=== PATIENT | female | born 1980 | race Two or more races ===

== ENCOUNTER 2024-02-27 07:34 | Inpatient (IN) | payer MEDICAID, OTHER ==
[~2024-02-27] VITALS: Ht 157.5 cm; Wt 63.5 kg
[2024-02-27 08:14] LABS: Basophils # (auto) 0 10 ^3/uL (0-0.2); Basophils % (auto) 0.2 % (0.0-2.0); Eosinophils # (auto) 0.1 10 ^3/uL (0-0.8); Eosinophils % (auto) 0.4 % (0.0-7.0); Hematocrit 44.6 % (36.0-46.0); Hemoglobin 14.7 g/dL (12.2-16.2); Lymphocytes # (auto) 1.6 10 ^3/uL (0.4-5.4); Lymphocytes % (auto) 9.5 % (10.0-50.0); Mean Corpuscular Hgb Conc. 32.9 g/dL (32.0-36.0); Mean Corpuscular Volume 94.1 fL (80.0-100.0); Monocytes # (auto) 0.4 10 ^3/uL (0-1.3); Monocytes % (auto) 2.6 % (0.0-12.0); Neutrophils # (auto) 14.8 10 ^3/uL (1.6-8.6); Neutrophils % (auto) 87.3 % (37.0-80.0); Platelet Count (auto) 364 10^3/uL (140-450); Red Blood Cells 4.74 10^6/uL (4.0-5.20); Red Cell Distribution Width 15.5 % (11.8-14.3)
[2024-02-27 08:58] LABS: Chloride 103 mmol/L (98-107); Potassium 2.8 mmol/L (3.5-5.1); Sodium 137 mmol/L (136-145)
[2024-02-27 08:59] LABS: Anion Gap 22 (5-15); Calcium 9.8 mg/dL (8.7-10.4); Carbon Dioxide 12 mmol/L (20-30)
[2024-02-27 09:04] LABS: BUN/Creatinine Ratio 10.4 (10.0-20.0); Blood Urea Nitrogen 8 mg/dL (9-23); Glucose 67 mg/dL (74-106); Lipase 32 U/L (12-53)
[2024-02-27] MEDS: metroNIDAZOLE 500MG/100ML 100 ML IV ONE (10:00)
[2024-02-27] MEDS ORDERED: ACETAMINOPHEN 325 MG TAB PO PRN (14:15)
[2024-02-27] MEDS ORDERED: SODIUM CHLORIDE 0.9% 1,000 ML IV SCH (14:15)
[2024-02-27] MEDS ORDERED: POTASSIUM EFFERVESENT TAB 25 MEQ PO ONE (14:15)
[2024-02-27] MEDS ORDERED: SODIUM CHLORIDE 0.9% 1,000 ML IV ONE (14:15)
[2024-02-27] MEDS ORDERED: ONDANSETRON HCL 4 MG/2 ML VIAL IV PRN (14:15)
[2024-02-27] MEDS ORDERED: NITROGLYCERIN 0.4 MG SL TAB SL PRN (14:15)
[2024-02-27] MEDS ORDERED: MORPHINE SULFATE INJ 2 MG/ml SYRG IV PRN (14:15)
[2024-02-27] MEDS: SODIUM CHLORIDE 0.9% 1,000 ML IV ONE ×2 (15:15→16:30)
[2024-02-27] MEDS: ONDANSETRON HCL 4 MG/2 ML VIAL IV ONE (16:34)
[2024-02-27] MEDS: MORPHINE SULFATE 4 MG/ML SYR/VIAL IV ONE (16:39)
[2024-02-27] MEDS: cefTRIAXone 1GM/50ML D5W 50 ML IV ONE (16:40)
[2024-02-27] MEDS: POTASSIUM EFFERVESENT TAB 25 MEQ PO ONE (16:44)
[2024-02-27 16:45] VITALS: PULSE 93; RESP 16; O2SAT 99
[2024-02-27 17:54] VITALS: BP 135/84; PULSE 77; RESP 16; TEMP 98.3; O2SAT 100
[2024-02-27 17:56] VITALS: PULSE 78; RESP 16; O2SAT 100
[2024-02-27] MEDS: SODIUM CHLORIDE 0.9% 1,000 ML IV SCH (18:30)
[2024-02-27] MEDS ORDERED: LUMA42CA PO (18:43)
[2024-02-27] MEDS ORDERED: DULO1CAP6 PO (18:43)
[2024-02-27] MEDS ORDERED: FAMO40TA7 PO (18:43)
[2024-02-27] MEDS ORDERED: TRAZ-227 PO (18:43)
[2024-02-27] MEDS ORDERED: GABA800T97 PO (18:43)
[2024-02-27] MEDS ORDERED: PANC3600 PO (18:43)
[2024-02-27] MEDS ORDERED: HYDR-4609 (18:43)
[2024-02-27 20:00] VITALS: PULSE 90; PULSE 96; RESP 19; O2SAT 100
[2024-02-27] MEDS: ONDANSETRON HCL 4 MG/2 ML VIAL IV PRN (20:15)
[2024-02-27] MEDS: KETOROLAC TROMETH 30 MG/ML 1ML VIAL IV PRN (20:15)
[2024-02-27 21:00] VITALS: BP 112/68; PULSE 96; RESP 19; TEMP 98.2; O2SAT 100
[2024-02-27] MEDS: metroNIDAZOLE 500MG/100ML 100 ML IV SCH (21:13)
[2024-02-27] MEDS ORDERED: metroNIDAZOLE 500MG/100ML 100 ML IV SCH (22:00)
[2024-02-27] MEDS: ACETAMINOPHEN 325 MG TAB PO PRN (22:51)
[2024-02-28] VITALS (9 sets, daily range): BP systolic 94–131; BP diastolic 67–79; PULSE 66–86; RESP 15–19; TEMP 97.9–98.4; O2SAT 99–100
[2024-02-28 06:43] LABS: Basophils # (auto) 0 10 ^3/uL (0-0.2); Basophils % (auto) 0.5 % (0.0-2.0); Eosinophils # (auto) 0.1 10 ^3/uL (0-0.8); Eosinophils % (auto) 1.4 % (0.0-7.0); Hematocrit 36.4 % (36.0-46.0); Hemoglobin 12.5 g/dL (12.2-16.2); Lymphocytes # (auto) 1.6 10 ^3/uL (0.4-5.4); Lymphocytes % (auto) 20.7 % (10.0-50.0); Mean Corpuscular Hemoglobin 31.6 pg (28.0-32.0); Mean Corpuscular Hgb Conc. 34.3 g/dL (32.0-36.0); Mean Corpuscular Volume 92.2 fL (80.0-100.0); Monocytes # (auto) 0.4 10 ^3/uL (0-1.3); Monocytes % (auto) 5.5 % (0.0-12.0); Neutrophils # (auto) 5.6 10 ^3/uL (1.6-8.6); Neutrophils % (auto) 71.9 % (37.0-80.0); Nucleated Red Blood Cells % 0.1 %; Platelet Count (auto) 303 10^3/uL (140-450); Red Blood Cells 3.95 10^6/uL (4.0-5.20); Red Cell Distribution Width 15.2 % (11.8-14.3); White Blood Cell 7.8 10^3/uL (4.4-10.8)
[2024-02-28 07:04] LABS: Alanine Aminotransferase 54 U/L (7-40); Alkaline Phosphatase 83 U/L (46-116); Anion Gap 15 (5-15); Aspartate Aminotransferase 39 U/L (13-40); BUN/Creatinine Ratio 9.9 (10.0-20.0); Blood Urea Nitrogen 7 mg/dL (9-23); Calcium 9.2 mg/dL (8.7-10.4); Carbon Dioxide 17 mmol/L (20-30); Chloride 109 mmol/L (98-107); Glucose 56 mg/dL (74-106); Potassium 4.5 mmol/L (3.5-5.1); Sodium 141 mmol/L (136-145)
[2024-02-28 07:05] LABS: Bilirubin, Total 0.4 mg/dL (0.2-1.0); Total Protein 6.1 g/dL (5.7-8.2)
[2024-02-28 07:32] LABS: Urine Bacteria FEW /hpf (None Seen); Urine Blood TRACE /uL (Negative); Urine Color Light-Yellow (Yellow); Urine Mucus FEW (None Seen); Urine Protein, UAD TRACE (Negative); Urine Specific Gravity 1.018 (1.001-1.035); Urine Urobilinogen Normal (Negative); Urine WBC 2 /hpf (0 - 5); Urine pH 5.5 (5.0-9.0)
[2024-02-28 07:33] LABS: Urine Clarity Hazy (Clear)
[2024-02-28] MEDS: cefTRIAXone 1GM/50ML D5W 50 ML IV SCH (08:26)
[2024-02-28] MEDS ORDERED: cefTRIAXone 1GM/50ML D5W 50 ML IV SCH (09:00)
[2024-02-28] MEDS ORDERED: ENOXAPARIN SOD 40 MG/0.4 ML SYRINGE SC SCH (10:00)
[2024-02-28] MEDS: FAMOTIDINE 20 MG TAB PO ONE (10:59)
[2024-02-28] MEDS: GABAPENTIN 400 MG CAP PO ONE (11:00)
[2024-02-28] MEDS: DULoxetine HCL 30 MG CAP PO ONE (11:00)
[2024-02-28] MEDS: HYDROcodone-ACET 7.5/325MG TAB PO ONE (11:01)
[2024-02-28] MEDS: traZODone HCL 50 MG TAB PO ONE (11:02)
[2024-02-28] MEDS: DEXTROSE 10% 1,000 ML IV ONE (12:46)
[2024-02-28] MEDS: GABAPENTIN 400 MG CAP PO SCH (14:22)
[2024-02-28] MEDS: NICOTINE 14 MG/24HR TOPICAL PATCH TD ONE (18:00)
[2024-02-28] MEDS: HYDROcodone-ACET 7.5/325MG TAB PO PRN (19:32)
[2024-02-29] VITALS (8 sets, daily range): BP systolic 93–119; BP diastolic 54–97; PULSE 62–84; RESP 16–18; TEMP 97.8–98.3; O2SAT 96–100
[2024-02-29 07:15] LABS: Anion Gap 11 (5-15); Carbon Dioxide 20 mmol/L (20-30); Chloride 109 mmol/L (98-107); Potassium 3.7 mmol/L (3.5-5.1); Sodium 140 mmol/L (136-145)
[2024-02-29 07:16] LABS: Calcium 9.2 mg/dL (8.7-10.4)
[2024-02-29 07:21] LABS: BUN/Creatinine Ratio 8.2 (10.0-20.0); Blood Urea Nitrogen < 5 mg/dL (9-23); Glucose 89 mg/dL (74-106)
[2024-02-29 07:35] LABS: Basophils # (auto) 0.1 10 ^3/uL (0-0.2); Basophils % (auto) 0.9 % (0.0-2.0); Eosinophils # (auto) 0.2 10 ^3/uL (0-0.8); Eosinophils % (auto) 2.4 % (0.0-7.0); Hematocrit 37.5 % (36.0-46.0); Hemoglobin 12.8 g/dL (12.2-16.2); Lymphocytes # (auto) 1.7 10 ^3/uL (0.4-5.4); Lymphocytes % (auto) 23.8 % (10.0-50.0); Mean Corpuscular Volume 91.1 fL (80.0-100.0); Monocytes # (auto) 0.5 10 ^3/uL (0-1.3); Monocytes % (auto) 7.2 % (0.0-12.0); Neutrophils # (auto) 4.7 10 ^3/uL (1.6-8.6); Neutrophils % (auto) 65.7 % (37.0-80.0); Nucleated Red Blood Cells % 0.8 %; Platelet Count (auto) 338 10^3/uL (140-450); Red Blood Cells 4.12 10^6/uL (4.0-5.20); Red Cell Distribution Width 15.4 % (11.8-14.3); White Blood Cell 7.1 10^3/uL (4.4-10.8)
[2024-02-29 08:54] LABS: Hepatitis B Surface Antigen Negative (Negative)
[2024-02-29 09:15] LABS: Hepatitis C Antibody Negative (Negative)
[2024-02-29] MEDS: NICOTINE 14 MG/24HR TOPICAL PATCH TD SCH (09:35)
[2024-02-29] MEDS: DULoxetine HCL 30 MG CAP PO SCH (09:36)
[2024-02-29] MEDS: FAMOTIDINE 20 MG TAB PO SCH (09:36)
[2024-02-29] MEDS: traZODone HCL 50 MG TAB PO SCH (09:36)
[2024-02-29 10:39] LABS: Free T4 (Free Thyroxine) 1.2 ng/dL (0.89-1.76)
[2024-02-29 10:40] LABS: Free T3 2.56 pg/mL (2.3-4.2)
[2024-02-29] MEDS: POLYETHYLENE GLYCOL 17 GM PWDR PO ONE (18:59)
[2024-03-01 00:40] VITALS: BP 98/70; PULSE 60; RESP 18; TEMP 98.4; O2SAT 97
[2024-03-01 05:00] VITALS: BP 117/68; PULSE 93; RESP 18; TEMP 98.4; O2SAT 98
[2024-03-01 06:18] LABS: Basophils # (auto) 0 10 ^3/uL (0-0.2); Basophils % (auto) 0.7 % (0.0-2.0); Eosinophils # (auto) 0.2 10 ^3/uL (0-0.8); Eosinophils % (auto) 3.4 % (0.0-7.0); Hematocrit 36.9 % (36.0-46.0); Hemoglobin 12.7 g/dL (12.2-16.2); Lymphocytes # (auto) 1.5 10 ^3/uL (0.4-5.4); Lymphocytes % (auto) 26.5 % (10.0-50.0); Mean Corpuscular Hemoglobin 31.3 pg (28.0-32.0); Mean Corpuscular Hgb Conc. 34.3 g/dL (32.0-36.0); Mean Corpuscular Volume 91.1 fL (80.0-100.0); Monocytes # (auto) 0.4 10 ^3/uL (0-1.3); Monocytes % (auto) 7.2 % (0.0-12.0); Neutrophils # (auto) 3.5 10 ^3/uL (1.6-8.6); Neutrophils % (auto) 62.2 % (37.0-80.0); Nucleated Red Blood Cells % 0.1 %; Platelet Count (auto) 292 10^3/uL (140-450); Red Blood Cells 4.05 10^6/uL (4.0-5.20); Red Cell Distribution Width 15.4 % (11.8-14.3); White Blood Cell 5.6 10^3/uL (4.4-10.8)
[2024-03-01 06:26] LABS: Chloride 111 mmol/L (98-107); Potassium 3.8 mmol/L (3.5-5.1); Sodium 145 mmol/L (136-145)
[2024-03-01 06:27] LABS: Anion Gap 8 (5-15); Calcium 9.4 mg/dL (8.7-10.4); Carbon Dioxide 26 mmol/L (20-30)
[2024-03-01 06:32] LABS: Glucose 89 mg/dL (74-106)
[2024-03-01 06:35] LABS: BUN/Creatinine Ratio 7.8 (10.0-20.0); Blood Urea Nitrogen < 5 mg/dL (9-23)
[2024-03-01 08:00] VITALS: PULSE 76
[2024-03-01 09:00] VITALS: BP 127/67; PULSE 77; RESP 18; TEMP 98.2; O2SAT 99
[2024-03-01 11:08] LABS: Anti-Centromere B Antibody <0.2 AI (0.0-0.9); Anti-Jo-1 Antibody <0.2 AI (0.0-0.9); Anti-Nuclear Antibody Direct Negative (Negative); Anti-dsDNA Antibody <1 IU/mL (0-9); Antichromatin Antibody <0.2 AI (0.0-0.9); Antiscleroderma-70 Antibody <0.2 AI (0.0-0.9); RNP Antibody <0.2 AI (0.0-0.9); Sjogren's Anti-SS-A Antibody <0.2 AI (0.0-0.9); Sjogren's Anti-SS-B Antibody <0.2 AI (0.0-0.9); Smith Antibody <0.2 AI (0.0-0.9)
[2024-03-01 13:00] VITALS: BP 99/65; PULSE 69; RESP 18; TEMP 98.1; O2SAT 97
[2024-03-01] MEDS: LACTULOSE 20Gm/30ML SOLN PO ONE (13:56)
[2024-03-01 17:18] VITALS: TEMP 36.7
== END 2024-03-01 18:23 | disposition home or self-care (01) | DRG 249 ==
LOC: ER 07:34 → EDBD 07:34 → EDUNIT# 07:34 → TELE 14:15 → TELE-CENTR 18:08
PROVIDERS: ADMIT Internal Medicine; ATTEND Emergency Medicine
DX: A08.4 Viral intestinal infection, unspecified (principal); R65.10 Systemic inflammatory response syndrome (SIRS) of non-infectious origin without acute organ dysfunction; R56.9 Unspecified convulsions; E16.2 Hypoglycemia, unspecified; E87.6 Hypokalemia; G89.4 Chronic pain syndrome; F12.90 Cannabis use, unspecified, uncomplicated; F31.81 Bipolar II disorder; N20.0 Calculus of kidney; M54.9 Dorsalgia, unspecified; F17.200 Nicotine dependence, unspecified, uncomplicated; K86.1 Other chronic pancreatitis; Z90.49 Acquired absence of other specified parts of digestive tract; Z71.6 Tobacco abuse counseling
CPT/HCPCS: 36415; 74176; 80048; 80053; 81001; 83516; 83605; 83690; 83735; 84439; 84443; 84481; 85025; 86038; 86200; 86225; 86235; 86803; 87040; 87081; 87340; 99291; G0378; J1885; J2405; J3490

== ENCOUNTER 2024-08-03 07:59 | Inpatient (IN) | payer MEDICAID ==
[~2024-08-03] VITALS: Ht 154.9 cm; Wt 54.0 kg
[~2024-08-03 07:59] MED LIST: DULO1CAP6 PO; FAMO40TA7 PO; GABA800T97 PO; HYDR-4609; LUMA42CA PO; PANC3600 PO; TRAZ-227 PO
[2024-08-03 08:40] VITALS: PULSE 108; RESP 19; O2SAT 99
--- NOTE | 2024-08-03 08:51 | ED.PDOC ---
GI ASSESSMENT HPI Comments 43 year old female presents to the ED with chief complaint of abdominal pain and nausea/vomiting. Patient reports that she has been experiencing nausea, vomiting, and epigastric abdominal pain for the past 4 days, not being able to eat any food during this time. Patient relays that she has chronic pancreatitis and her last flare up was around 02/2024. Patient denies any diarrhea, fever, chills, dizziness, headache, or hematemesis. Chief Complaint: Nausea/Vomiting Time Seen by MD: 08:49 Primary Care Provider: ESMER Reviewed Notes: Nurses Notes, Medications, Allergies Allergies: Coded Allergies: NO KNOWN ALLERGIES (Unverified , 02/27/24) Home Meds Reported Medications Hydrocodone-Acetaminophen (Hydrocodone Bitartrate/AC 7.5-300 mg) 1 Tab Tab 02/27/24 Duloxetine HCl (Duloxetine HCl) 60 Mg Cap, 1 CAP PO DAILY 02/27/24 Famotidine (Famotidine) 40 Mg Tab, 1 TAB PO DAILY 02/27/24 Lumateperone Tosylate (Caplyta) 42 Mg Cap, 1 CAP PO DAILY 02/27/24 Gabapentin (Gabapentin) 800 Mg Tab, 1 TAB PO TID 02/27/24 Trazodone Hcl (Trazodone Hcl) 50 Mg Tab, TAB PO 02/27/24 Pancrelipase (Lipase-Protease- (CREON) 36,000 Unt Cap, PO 02/27/24 Information Source: Patient Mode of Arrival: Ambulatory Timing: Days Duration: Since onset Prehospital treatment: None Quality: Aching Vomitus: Watery Stool: Normal Severity: Moderate Recent: None Recent Hx of: None Pain Location: Epigastric Modifying Factors: Nothing Associated sign and symptoms: Nausea, Vomiting, Abdominal Pain Past Medical History Past Medical History (Other): Chronic pancreatitis Surgical History: Cholecystectomy [employer] History: No Pertinent [employer] History Family History Family History: Reviewed,noncontributory to illness, Unknown Social History Smoker: Non-Smoker Alcohol: Sober Drugs: Denies Drug Use Lives In: Home Constitutional: denies: chills, diaphoresis, fatigue, fever, malaise, sweats, weakness, others EENTM: denies: blurred vision, double vision, ear bleeding, ear discharge, ear drainage, ear pain, ear ringing, eye pain, eye redness, hearing loss, mouth pain, mouth swelling, nasal discharge, nose bleeding, nose congestion, nose pain, photophobia, tearing, throat pain, throat swelling, voice changes, others Respiratory: denies: cough, hemoptysis, orthopnea, SOB at rest, shortness of breath, SOB with excertion, stridor, wheezing, others Cardiovascular: denies: chest pain, dizzy spells, diaphoresis, Dyspnea on exertion, edema, irregular heart beat, left arm pain, lightheadedness, palpitations, PND, syncope, others Gastrointestinal: reports: abdominal pain, nausea, vomiting; denies: abdomen distended, blood streaked bowels, constipated, diarrhea, dysphagia, difficulty swallowing, hematemesis, melena, poor appetite, poor fluid intake, rectal bleeding, rectal pain, others Genitourinary: denies: abnormal vagina bleeding, burning, dyspareunia, dysuria, flank pain, frequency, hematuria, incontinence, pain, , vagina discharge, urgency, others Neurological: denies: dizziness, fainting, headache, left sided numbness, left sided weakness, numbness, paresthesia, pre-existing deficit, right sided numbness, right sided weakness, seizure, speech problems, tingling, tremors, weakness, others Musculoskeletal: denies: back pain, gout, joint pain, joint swelling, muscle pain, muscle stiffness, neck pain, others Integumetry: denies: bruises, change in color, change in hair/nails, dryness, laceration, lesions, lumps, rash, wounds, others Allergic/Immunocompromised: denies: Difficulty Healing, Frequent Infections, Hives, Itching, others Hematologic/Lymphatic: denies: anemia, blood clots, easy bleeding, easy bruising, swollen glands, others Endocrine: denies: excessive hunger, excessive sweating, excessive thirst, excessive urination, flushing, intolerance to cold, intolerance to heat, unexplained weight gain, unexplained weight loss, others Psychiatric: denies: anxiety, bipolar disorder, depression, hopeless, panic disorder, schizophrenia, sleepless, suicidal, others All Other Systems: Reviewed and Negative Physical Exam General Appearance: Moderate Distress, Normal HEENT: Normal ENT Inspection, PERRL/EOMI Neck: Full Range of Motion, Non-Tender, Normal, Normal Inspection Respiratory: Chest Non-Tender, Lungs Clear, No Accessory Muscle Use, No Respiratory Distress, Normal Breath Sounds Cardiovascular: No Edema, No JVD, No Murmur, No Gallop, Normal Peripheral Pulses, Regular Rate/Rhythm Breast Exam: Deferred Gastrointestinal: No Organomegaly, No Pulsatile Mass, Normal Bowel Sounds, Soft Genitalia: Deferred Pelvic: Deferred Rectal: Deferred Extremities: No calf tenderness, Normal capillary refill, Normal inspection, Normal range of motion, Non-tender, No pedal edema Musculoskeletal : Apperance: Normal Neurologic: Alert, program director II-XII nml as Tested, No Motor Deficits, Normal Affect, Normal Mood, No Sensory Deficits Cerebellar Function: Normal Reflexes: Normal Skin: Dry, Normal Color, Warm Peripheral Pulses: 3+ Radial (R), 3+ Radial (L) Lymphatic: No Adenopathy Was a procedure done? Was a procedure done?: No GI differential Dx Differential Diagnosis: Constipation, Diverticular disease, Esophagitis, Gas tritis/PUD, Gastroenteritis X-Ray, Labs, Meds, VS Vital Signs Date Time Temp Pulse Resp B/P (MAP) Pulse Ox O2 Delivery O2 Flow Rate FiO2 08/03/24 08:40 97.8 108 19 126/69 (88) 99 97.8 08/03/24 08:40 108 19 99 Room Air* 0 21 08/03/24 08:10 98.0 124 16 128/50 (76) 98 Lab Test 08/03/24 09:45 Range/Units White Blood Count 11.8 H 4.4-10.8 10^3/uL Red Blood Count 5.12 4.0-5.20 10^6/uL Hemoglobin 15.1 12.2-16.2 g/dL Hematocrit 46.4 H 36.0-46.0 % Mean Corpuscular Volume 90.6 80.0-100.0 fL Mean Corpuscular Hemoglobin 29.5 28.0-32.0 pg Mean Corpuscular Hemoglobin Concent 32.5 32.0-36.0 g/dL Red Cell Distribution Width 17.0 H 11.8-14.3 % Platelet Count 316 140-450 10^3/uL Mean Platelet Volume 7.5 6.9-10.8 fL Neutrophils (%) (Auto) 82.2 H 37.0-80.0 % Lymphocytes (%) (Auto) 11.9 10.0-50.0 % Monocytes (%) (Auto) 5.1 0.0-12.0 % Eosinophils (%) (Auto) 0.3 0.0-7.0 % Basophils (%) (Auto) 0.5 0.0-2.0 % Neutrophils # (Auto) 9.7 H 1.6-8.6 10 ^3/uL Lymphocytes # (Auto) 1.4 0.4-5.4 10 ^3/uL Monocytes # (Auto) 0.6 0-1.3 10 ^3/uL Eosinophils # (Auto) 0 0-0.8 10 ^3/uL Basophils # (Auto) 0.1 0-0.2 10 ^3/uL Nucleated Red Blood Cells 0.0 % Platelet Estimate Pending Sodium Level Pending Potassium Level Pending Chloride Level Pending Carbon Dioxide Level Pending Anion Gap Pending Blood Urea Nitrogen Pending Creatinine Pending Glomerular Filtration Rate Calc Pending BUN/Creatinine Ratio Pending Serum Glucose Pending Calcium Level Pending Lipase Pending Patient alert. Complaining of abdominal pain. History of pancreatitis. Vitals stable. Answering all questions. Continues to be in pain. WBC elevated. Establish intravenous access. Was given fluids. Was given morphine. Was given Flagyl. Explained to the patient. Continue monitoring. Time of 1ST Reevaluation: 09:49 Reevaluation 1ST: Unchanged Patient Education/Counseling: Diagnosis, Treatment Family Education/Counseling: No Family Present Departure 1 Departure Time of Disposition: 10:53 Impression: Primary Impression: Acute abdominal pain Additional Impression: Leukocytosis Qualified Codes: D72.829 - Elevated white blood cell count, unspecified Disposition: 09 ADMITTED INPATIENT Admit to: Med Surg Condition: Guarded Critical Care Note Critical Care Time?: No Stability Stability form required: No Heart Score Heart Score: Heart Score Response (Comments) Value History N/A 0 EKG N/A 0 Age N/A 0 Risk Factors N/A 0 Troponin N/A 0 Total 0 I personally scribed for GENEVA CAMPO MD ([email or web address]) on 08/03/24 at 08:51. Electronically submitted by Kelechi Chairez ([email or web address]). GENEVA CAMPO MD Aug 03, 2024 08:51
[2024-08-03 10:16] LABS: Chloride 100 mmol/L (98-107); Sodium 136 mmol/L (136-145)
[2024-08-03 10:17] LABS: Anion Gap 16 (5-15); Carbon Dioxide 20 mmol/L (20-31)
[2024-08-03 10:19] LABS: Basophils # (auto) 0.1 10 ^3/uL (0-0.2); Basophils % (auto) 0.5 % (0.0-2.0); Eosinophils # (auto) 0 10 ^3/uL (0-0.8); Eosinophils % (auto) 0.3 % (0.0-7.0); Hematocrit 46.4 % (36.0-46.0); Hemoglobin 15.1 g/dL (12.2-16.2); Lymphocytes # (auto) 1.4 10 ^3/uL (0.4-5.4); Lymphocytes % (auto) 11.9 % (10.0-50.0); Mean Corpuscular Hemoglobin 29.5 pg (28.0-32.0); Mean Corpuscular Hgb Conc. 32.5 g/dL (32.0-36.0); Mean Corpuscular Volume 90.6 fL (80.0-100.0); Monocytes # (auto) 0.6 10 ^3/uL (0-1.3); Monocytes % (auto) 5.1 % (0.0-12.0); Neutrophils # (auto) 9.7 10 ^3/uL (1.6-8.6); Neutrophils % (auto) 82.2 % (37.0-80.0); Platelet Count (auto) 316 10^3/uL (140-450); Red Blood Cells 5.12 10^6/uL (4.0-5.20); White Blood Cell 11.8 10^3/uL (4.4-10.8)
[2024-08-03 10:22] LABS: Glucose 75 mg/dL (74-106)
[2024-08-03 10:23] LABS: BUN/Creatinine Ratio 9.2 (10.0-20.0); Lipase 35 U/L (12-53)
[2024-08-03 11:14] LABS: Blood Urea Nitrogen 6 mg/dL (9-23); Calcium 10.5 mg/dL (8.7-10.4); Potassium 3.2 mmol/L (3.5-5.1)
[2024-08-03] MEDS: metroNIDAZOLE 500MG/100ML 100 ML IV ONE (11:48)
[2024-08-03] MEDS: cefTRIAXone 1GM/50ML D5W 50 ML IV ONE (11:48)
[2024-08-03] MEDS: MORPHINE SULFATE INJ 2 MG/ml SYRG IV ONE (11:49)
[2024-08-03] MEDS: ONDANSETRON HCL 4 MG/2 ML VIAL IV ONE (11:49)
[2024-08-03] MEDS: SODIUM CHLORIDE 0.9% 1,000 ML IV ONE ×2 (11:50→17:24)
[2024-08-03] MEDS: POTASSIUM CHL 20 Meq TABLET PO ONE (11:51)
[2024-08-03 12:04] LABS: Platelet Estimate Adequate
[2024-08-03 12:13] LABS: Magnesium 1.9 mg/dL (1.6-2.6)
--- NOTE | 2024-08-03 13:15 | DVH ---
INDICATION: abdominal pain TECHNIQUE: Multiple real-time sonographic images of the abdomen were obtained. COMPARISON: None FINDINGS: Liver is homogenous in echogenicity. The liver measures 14.9 cm. No intrahepatic biliary ductal dilatation is noted. Post cholecystectomy. The common duct measures 1.0 cm and is unremarkable. The right kidney measures 9.5 cm. No hydronephrosis. The left kidney measures 9.3 cm. No hydronephros is. The spleen measures 8.4 cm, within normal limits. The echogenicity is within normal limits. The pancreas is not well visualized due to obscuration from bowel gas. The visualized portions of the IVC and aorta are grossly unremarkable. IMPRESSION: No acute findings.
[2024-08-03] MEDS ORDERED: DOCUSATE SOD 100 MG CAP PO PRN (14:00)
[2024-08-03] MEDS ORDERED: ACETAMINOPHEN 325 MG TAB PO PRN (14:00)
[2024-08-03 14:13] LABS: Urine Bacteria FEW /hpf (None Seen); Urine Blood Negative /uL (Negative); Urine Clarity Clear (Clear); Urine Color Light-Yellow (Yellow); Urine Mucus FEW (None Seen); Urine Protein, UAD Negative (Negative); Urine Specific Gravity 1.006 (1.001-1.035); Urine Squamous Epithelial Cell FEW /hpf (<5); Urine Urobilinogen Normal (Negative); Urine WBC < 1 /HPF (0-5); Urine pH 5.5 (5.0-9.0)
[2024-08-03] MEDS ORDERED: traZODone HCL 50 MG TAB PO PRN (14:15)
--- NOTE | 2024-08-03 14:18 | DVHHP2 ---
History of Present Illness Reason for Visit: Abdominal pain History of Present Illness Magda Mccann is a 43-year-old female with past medical history of ETOH abuse-sober for5 years, chronic pancreatitis, chronic pain, and depression, who came in for abdominal pain. Patient states she has been experiencing severe abdominal pain with associated nausea and vomiting for 4 days. Patient states she has not been able to eat anything for the last 4 days either. Psych: Depression Past Surgical History: Cholecystectomy, Other (Left wrist, spinal cord stimulator, cervical neck surgery, breast augmentation) Smoke: 1 pack per day (Vapes) ALCOHOL: none (quite 5 years ago) Drugs: Marijuana Lives: Other (board and care facility) Review of Systems Constitutional: No: Fever, Chills, Sweats, Weakness, Malaise, Other Eyes: No: Pain, Vision change, Conjunctivae inflammation, Eyelid inflammation, Other, Redness ENT: No: Ear pain, Ear discharge, Nose pain, Nose discharge, Nose congestion, Mouth pain, Mouth swelling, Throat pain, Throat swelling, Other Respiratory: No: Cough, Dry, Shortness of breath, SOB with excertion, Wheezing, Hemoptysis, Pleuritic Pain, Sputum, Wheezing, Other Cardiovascular: No: Chest Pain, Palpitations, Orthopnea, Paroxysmal Noc. Dyspnea, Edema, Lt Headedness, Other Gastrointestinal: Nausea, Vomiting, Abdominal Pain; No: Diarrhea, Constipation, Melena, Hematochezia, Other Genitourinary: No Dysuria, No Frequency, No Incontinence, No Hematuria, No Retention, No Other Musculoskeletal: No: other, neck pain, shoulder pain, arm pain, back pain, hand pain, leg pain, foot pain Skin: No: Rash, Lesions, Jaundice, Bruising, Other Neurological: No: Weakness, Numbness, Incoordination, Change in speech, Confusion, Seizures, Other Allergies: Coded Allergies: NO KNOWN ALLERGIES (Unverified , 02/27/24) Exam Vital Signs Vital Signs Date Time Temp Pulse Resp B/P (MAP) Pulse Ox O2 Delivery O2 Flow Rate FiO2 08/03/24 11:49 102 18 124/83 08/03/24 11:46 98.0 100 98.0 08/03/24 08:40 Room Air* 0 21 General Appearance: Alert, Oriented X3, Cooperative, moderate distress HEENT: Atraumatic, PERRLA, EOMI Respiratory: Clear to auscultation, Normal air movement Cardiovascular: Normal S1, Normal S2, Other (Tachycardia) Abdominal: Soft, Other (C/O pain) Extremities: No clubbing, No cyanosis, No edema, Normal pulses Skin: No rashes, No breakdown, No significant lesion Neuro: Normal gait, Normal speech, Strength at 5/5 X4 ext, Normal tone Psych/Mental Status: Mental status NL, Mood NL Labs/Xrays Labs Test 08/03/24 09:45 08/03/24 08:13 Range/Units White Blood Count 11.8 H 4.4-10.8 10^3/uL Red Blood Count 5.12 4.0-5.20 10^6/uL Hemoglobin 15.1 12.2-16.2 g/dL Hematocrit 46.4 H 36.0-46.0 % Mean Corpuscular Volume 90.6 80.0-100.0 fL Mean Corpuscular Hemoglobin 29.5 28.0-32.0 pg Mean Corpuscular Hemoglobin Concent 32.5 32.0-36.0 g/dL Red Cell Distribution Width 17.0 H 11.8-14.3 % Platelet Count 316 140-450 10^3/uL Mean Platelet Volume 7.5 6.9-10.8 fL Neutrophils (%) (Auto) 82.2 H 37.0-80.0 % Lymphocytes (%) (Auto) 11.9 10.0-50.0 % Monocytes (%) (Auto) 5.1 0.0-12.0 % Eosinophils (%) (Auto) 0.3 0.0-7.0 % Basophils (%) (Auto) 0.5 0.0-2.0 % Neutrophils # (Auto) 9.7 H 1.6-8.6 10 ^3/uL Lymphocytes # (Auto) 1.4 0.4-5.4 10 ^3/uL Monocytes # (Auto) 0.6 0-1.3 10 ^3/uL Eosinophils # (Auto) 0 0-0.8 10 ^3/uL Basophils # (Auto) 0.1 0-0.2 10 ^3/uL Nucleated Red Blood Cells 0.0 % Platelet Estimate Adequate Sodium Level 136 136-145 mmol/L Potassium Level 3.2 L 3.5-5.1 mmol/L Chloride Level 100 98-107 mmol/L Carbon Dioxide Level 20 20-31 mmol/L Anion Gap 16 H 5-15 Blood Urea Nitrogen 6 L 9-23 mg/dL Creatinine 0.65 0.550-1.02 mg/dL Glomerular Filtration Rate Calc 113 >90 mL/min BUN/Creatinine Ratio 9.2 L 10.0-20.0 Serum Glucose 75 74-106 mg/dL Calcium Level 10.5 H 8.7-10.4 mg/dL Magnesium Level 1.9 1.6-2.6 mg/dL Amylase Level 100 30-118 U/L Lipase 35 12-53 U/L INDICATION: abdominal pain FINDINGS: Liver is homogenous in echogenicity. The liver measures 14.9 cm. No intrahepatic biliary ductal dilatation is noted. Post cholecystectomy. The common duct measures 1.0 cm and is unremarkable. The right kidney measures 9.5 cm. No hydronephrosis. The left kidney measures 9.3 cm. No hydronephrosis. The spleen measures 8.4 cm, within normal limits. The echogenicity is within normal limits. The pancreas is not well visualized due to obscuration from bowel gas. The visualized portions of the IVC and aorta are grossly unremarkable. IMPRESSION: No acute findings. Assessment/Plan Assessment/Plan Assessment: Intractable nausea and vomiting, Leukocytosis, Hypokalemia, Plan: Admit to Med-Surg, GI consult, IV antibiotics, IV hydration, PRN Reglan, Start Carafate, Clear liquid diet, Dietary consult, Manage/Monitor electrolytes closely, Home medications reconciled, Consider CT Abd/Pelv if symptoms persist, Plan discussed with: Patient My Orders Orders - CUONG STROUD Procedure Category Date Status Time Abdomen Complete US 08/03/24 Resulted Sonogram 11:53 Admit ADMIT 08/03/24 Transmitted 13:59 Code Status CODE 08/03/24 Transmitted 13:59 Ondansetron Hcl PHA 08/03/24 Transmitted (Zofran) 14:00 Docusate Sodium PHA 08/03/24 Transmitted Capsule (Colace 14:00 Complete Blood Count LAB 08/04/24 Verified 04:00 Comprehensive LAB 08/04/24 Verified Metabolic Panel 04:00 Condition: Serious ARLEEN 08/03/24 Transmitted 13:59 Acetaminophen Tablet PHA 08/03/24 Transmitted (Tylenol Tablet) 14:00 Clear Liq Diet DIET 08/03/24 Transmitted Dinner NS PHA 08/03/24 Transmitted 14:00 Magnesium LAB 08/03/24 Transmitted 16:00 Potassium LAB 08/03/24 Transmitted 16:00 * Gi Dvh Mushroom Sorter Grader CONS 08/03/24 Transmitted 13:59 Metronidazole Ivpb PHA 08/03/24 Transmitted Flagyl 14:00 Ceftriaxone Ivpb PHA 08/04/24 Transmitted Rocephin 09:00 Date of Service: Aug 03, 2024 Billing Provider: CUONG STROUD Common Visit Codes: [id number] INP/OBS CARE (MOD) CUONG STROUD Aug 03, 2024 14:18
[2024-08-03 16:36] VITALS: BP 132/86; PULSE 78; RESP 18; TEMP 97.6; O2SAT 100
[2024-08-03 16:41] VITALS: BP 132/86; PULSE 74; RESP 18; TEMP 97.6; O2SAT 100
[2024-08-03] MEDS: metroNIDAZOLE 500MG/100ML 100 ML IV SCH (17:24)
[2024-08-03] MEDS: ONDANSETRON HCL 4 MG/2 ML VIAL IV PRN (17:40)
[2024-08-03 19:18] LABS: Potassium 4.2 mmol/L (3.5-5.1)
[2024-08-03 19:25] LABS: Magnesium 1.9 mg/dL (1.6-2.6)
[2024-08-03 20:00] VITALS: PULSE 78; RESP 18; O2SAT 99
[2024-08-03 21:00] VITALS: BP 98/58; PULSE 78; RESP 18; TEMP 98.3; O2SAT 99
[2024-08-03] MEDS ORDERED: HYDROcodone-ACET 5/325MG TAB PO PRN (21:30)
[2024-08-03] MEDS: SUCRALFATE 1 GM/10 ML ORAL SUSP PO SCH (21:52)
[2024-08-03] MEDS: HYDROcodone-ACET 5/325MG TAB PO PRN (22:32)
[2024-08-04] VITALS (8 sets, daily range): BP systolic 91–119; BP diastolic 63–71; PULSE 59–83; RESP 14–19; TEMP 97.9–98.5; O2SAT 96–100
[2024-08-04] MEDS: GABAPENTIN 400 MG CAP PO SCH (05:45)
[2024-08-04 06:23] LABS: Basophils # (auto) 0 10 ^3/uL (0-0.2); Basophils % (auto) 0.6 % (0.0-2.0); Eosinophils # (auto) 0.1 10 ^3/uL (0-0.8); Eosinophils % (auto) 1.8 % (0.0-7.0); Hematocrit 40.8 % (36.0-46.0); Hemoglobin 13.2 g/dL (12.2-16.2); Lymphocytes # (auto) 1.7 10 ^3/uL (0.4-5.4); Lymphocytes % (auto) 29.9 % (10.0-50.0); Mean Corpuscular Hemoglobin 29.6 pg (28.0-32.0); Mean Corpuscular Hgb Conc. 32.4 g/dL (32.0-36.0); Mean Corpuscular Volume 91.2 fL (80.0-100.0); Monocytes # (auto) 0.5 10 ^3/uL (0-1.3); Monocytes % (auto) 9.4 % (0.0-12.0); Neutrophils # (auto) 3.4 10 ^3/uL (1.6-8.6); Neutrophils % (auto) 58.3 % (37.0-80.0); Nucleated Red Blood Cells % 0.2 %; Platelet Count (auto) 276 10^3/uL (140-450); Red Blood Cells 4.47 10^6/uL (4.0-5.20); Red Cell Distribution Width 16.9 % (11.8-14.3); White Blood Cell 5.8 10^3/uL (4.4-10.8)
[2024-08-04 06:31] LABS: Alanine Aminotransferase 26 U/L (7-40); Alkaline Phosphatase 56 U/L (46-116); Anion Gap 9 (5-15); Aspartate Aminotransferase 20 U/L (13-40); Calcium 9.8 mg/dL (8.7-10.4); Carbon Dioxide 25 mmol/L (20-31); Glucose 88 mg/dL (74-106); Potassium 4.8 mmol/L (3.5-5.1); Sodium 144 mmol/L (136-145)
[2024-08-04 06:32] LABS: Bilirubin, Total 0.4 mg/dL (0.2-1.0)
[2024-08-04 06:35] LABS: Chloride 110 mmol/L (98-107)
[2024-08-04 06:36] LABS: BUN/Creatinine Ratio 8.2 (10.0-20.0); Blood Urea Nitrogen < 5 mg/dL (9-23)
[2024-08-04] MEDS: FAMOTIDINE 20 MG TAB PO SCH (09:25)
[2024-08-04] MEDS: DULoxetine HCL 30 MG CAP PO SCH (09:26)
[2024-08-04] MEDS: cefTRIAXone 1GM/50ML D5W 50 ML IV SCH (09:26)
--- NOTE | 2024-08-04 13:15 | DVHINCON2 ---
Date of service: Aug 04, 2024 Referring Physician Guillermina Reason for Consultation Nausea and vomiting History of Present Illness The patient is a 43-year-old female with a prior history of alcohol abuse, chronic pancreatitis, who has been sober for five years, history of seizure disorder, on chronic opioid medications, history of back pain, admitted with symptoms of nausea and vomiting. Patient's emesis is nonbloody. Patient had abdominal pain. She states that her diarrhea that she is having is chronic. She takes Creon for pancreatic insufficiency. Patient was hospitalized several months ago for similar findings. At that time patient did not have elevation of pancreatic enzymes and imaging did not suggest chronic pancreatitis. Patient states that she is scheduled for colonoscopy in December with Dr. Chavez. She denies any hematochezia, change in medications, ill contacts or recent antibiotic use. She denies any fevers or chills. Patient recently was placed on Percocet on her chronic pain medication [place] was discontinued. Past Medical History As above Past Surgical History Cholecystectomy Wrist surgery Breast augmentation Family History: Autoimmune disorder Family History Denies GI diseases or malignancies Social History Patient smokes tobacco as well as marijuana No alcohol use currently prior history of abuse Allergies: Coded Allergies: NO KNOWN ALLERGIES (Unverified , 02/27/24) Home Meds Reported Medications Duloxetine HCl (Duloxetine HCl) 60 Mg Cap, 1 CAP PO DAILY 02/27/24 Famotidine (Famotidine) 40 Mg Tab, 1 TAB PO DAILY 02/27/24 Lumateperone Tosylate (Caplyta) 42 Mg Cap, 1 CAP PO DAILY 02/27/24 Gabapentin (Gabapentin) 800 Mg Tab, 1 TAB PO TID 02/27/24 Trazodone Hcl (Trazodone Hcl) 50 Mg Tab, TAB PO 02/27/24 Pancrelipase (Lipase-Protease- (CREON) 36,000 Unt Cap, PO 02/27/24 Discontinued Reported Medications Hydrocodone-Acetaminophen (Hydrocodone Bitartrate/AC 7.5-300 mg) 1 Tab Tab 02/27/24 Current Medications Current Medications Medications (Trade) Dose Ordered Sig/Elina Route PRN Reason Start Time Stop Time Status Last Admin Ondansetron HCl (Zofran) 4 mg Q4HP PRN IV NAUSEA / VOMITING 08/03/24 14:00 08/04/24 08:30 Docusate Sodium (Colace Capsule) 100 mg BIDPRN PRN PO FOR CONSTIPATION 08/03/24 14:00 Acetaminophen (Tylenol Tablet) 650 mg Q6HP PRN PO PAIN SCALE 1-3 OR TEMP>100.4 08/03/24 14:00 Metronidazole 100 ml @ 100 mls/hr Q8HR IV 08/03/24 14:00 08/04/24 05:52 Ceftriaxone Sodium 50 ml @ 100 mls/hr DAILY@09 IV 08/04/24 09:00 08/04/24 09:26 Trazodone HCl (Desyrel) 50 mg HS PRN PO FOR INSOMNIA 08/03/24 14:15 Duloxetine HCl (Cymbalta Capsule) 60 mg DAILY PO 08/04/24 10:00 08/04/24 09:26 Famotidine (Pepcid Tablet) 40 mg DAILY PO 08/04/24 10:00 08/04/24 09:25 Gabapentin (Neurontin Capsule) 800 mg TID PO 08/04/24 06:00 08/04/24 05:45 Metoclopramide HCl (Reglan Injection) 10 mg Q8HPRN PRN IV NAUSEA / VOMITING 08/03/24 14:15 Sucralfate (Carafate Susp) 1 gm BID@0600,2200 PO 08/03/24 22:00 08/04/24 05:45 Acetaminophen/ Hydrocodone Bitart ([place] 5/325MG Tab) 1 tab Q6HPRN PRN PO MILD PAIN (1-3 PAIN SCALE) 08/03/24 21:30 UNV Acetaminophen/ Hydrocodone Bitart ([place] 5/325MG Tab) 1 tab Q6HPRN PRN PO MODERATE PAIN (4-6 PAIN SCALE) 08/03/24 22:15 08/04/24 12:03 Review of Systems Constitutional: Weight loss Head and neck: No visual changes or hearing loss Cardiac: No palpitations or chest pain Pulmonary: No cough wheeze Endocrine: Pancreatic insufficiency no diabetes or hypothyroidism Rheumatology: Chronic back pain no fractures Skin: No rashes or bruises GI: See HPI : No UTI or dysuria Neuro: No stroke but does complain of seizure disorder Psych: Anxiety no psychosis Heme: No malignancy or anemia Vital Signs Vital Signs Date Time Temp Pulse Resp B/P (MAP) Pulse Ox O2 Delivery O2 Flow Rate FiO2 08/04/24 08:26 98.3 70 19 99/64 (76) 100 98.3 08/04/24 08:00 Room Air* 0 99 21 Labs/Diagnostic Data Labs Test 08/04/24 05:29 08/03/24 18:40 08/03/24 09:45 08/03/24 08:13 Range/Units White Blood Count 5.8 # 4.4-10.8 10^3/uL Red Blood Count 4.47 4.0-5.20 10^6/uL Hemoglobin 13.2 12.2-16.2 g/dL Hematocrit 40.8 # 36.0-46.0 % Mean Corpuscular Volume 91.2 80.0-100.0 fL Mean Corpuscular Hemoglobin 29.6 28.0-32.0 pg Mean Corpuscular Hemoglobin Concent 32.4 32.0-36.0 g/dL Red Cell Distribution Width 16.9 H 11.8-14.3 % Platelet Count 276 140-450 10^3/uL Mean Platelet Volume 7.3 6.9-10.8 fL Neutrophils (%) (Auto) 58.3 37.0-80.0 % Lymphocytes (%) (Auto) 29.9 10.0-50.0 % Monocytes (%) (Auto) 9.4 0.0-12.0 % Eosinophils (%) (Auto) 1.8 0.0-7.0 % Basophils (%) (Auto) 0.6 0.0-2.0 % Neutrophils # (Auto) 3.4 1.6-8.6 10 ^3/uL Lymphocytes # (Auto) 1.7 0.4-5.4 10 ^3/uL Monocytes # (Auto) 0.5 0-1.3 10 ^3/uL Eosinophils # (Auto) 0.1 0-0.8 10 ^3/uL Basophils # (Auto) 0 0-0.2 10 ^3/uL Nucleated Red Blood Cells 0.2 % Sodium Level 144 # 136-145 mmol/L Potassium Level 4.8 3.5-5.1 mmol/L Chloride Level 110 #H 98-107 mmol/L Carbon Dioxide Level 25 20-31 mmol/L Anion Gap 9 5-15 Blood Urea Nitrogen < 5 L 9-23 mg/dL Creatinine 0.61 0.550-1.02 mg/dL Glomerular Filtration Rate Calc 115 >90 mL/min BUN/Creatinine Ratio 8.2 L 10.0-20.0 Serum Glucose 88 74-106 mg/dL Calcium Level 9.8 8.7-10.4 mg/dL Total Bilirubin 0.4 0.2-1.0 mg/dL Aspartate Amino Transferase (AST) 20 13-40 U/L Alanine Aminotransferase (ALT) 26 7-40 U/L Alkaline Phosphatase 56 46-116 U/L Total Protein 6.0 5.7-8.2 g/dL Albumin 4.0 3.2-4.8 g/dL Magnesium Level 1.9 1.6-2.6 mg/dL Platelet Estimate Adequate Amylase Level 100 30-118 U/L Lipase 35 12-53 U/L Urine Color Light-yellow Yellow Urine Clarity Clear Clear Urine pH 5.5 5.0-9.0 Urine Specific [place] 1.006 1.001-1.035 Urine Protein Negative Negative Urine Ketones 2+ H Negative Urine Blood Negative Negative /uL Urine Nitrite Negative Negative Urine Bilirubin Negative Negative Urine Urobilinogen Normal Negative mg/dL Urine Leukocyte Esterase Negative Negative /uL Urine RBC None seen 0 - 4 /hpf Urine Microscopic WBC < 1 0-5 /HPF Urine Squamous Epithelial Cells Few <5 /hpf Urine Bacteria Few H None Seen /hpf Urine Mucus Few None Seen Urine Glucose Normal Normal mg/dL Assessment One. Abdominal pain 2. Nausea and vomiting 3. History of pancreatic insufficiency on Creon 4. Chronic narcotic pain medication usage 5. History of diarrhea Differential diagnosis includes gastroenteritis, doubt her symptoms are due to chronic pancreatitis in the absence of elevated pancreatic enzymes however still possible, inflammatory bowel disease versus other Problems(with codes): (1) Acute abdominal pain (2) Leukocytosis (3) Intractable nausea and vomiting Plan/Recommendation 1. Soft diet as tolerated 2. Follow labs 3. Pain medication and antiemetics 4. Patient will benefit from endoscopy and colonoscopy 5. Stool studies Plan discussed with: Patient OXANA HINKLE MD Aug 04, 2024 13:15
--- NOTE | 2024-08-04 13:49 | DVHPN2 ---
Subjective 43-year-old female with a history of chronic pancreatitis, chronic pain, depression and prior history of EtOH use sober for 6 years now comes with chief complaint of intractable nausea and vomiting and abdominal pain Evaluation showed hypokalemia which was corrected She is still complaining of nausea and vomiting now No abdominal pain She is also having diarrhea Changes from previous H/P or p: Changes Eyes: No Pain, No Vision change, No Conjunctivae inflammation, No Eyelid inflammation, No Other, No Redness ENT: No Ear pain, No Ear discharge, No Nose pain, No Nose discharge, No Nose congestion, No Mouth pain, No Mouth swelling, No Throat pain, No Throat swelling, No Other Cardiovascular: No Chest Pain, No Palpitations, No Orthopnea, No Paroxysmal Noc. Dyspnea, No Edema, No Lt Headedness, No Other Respiratory: No Cough, No Dry, No Shortness of breath, No SOB with excertion, No Wheezing, No Hemoptysis, No Pleuritic Pain, No Sputum, No Other Gastrointestinal: Nausea, Vomiting, Abdominal Pain; No Diarrhea, No Constipation, No Melena, No Hematochezia, No Other Genitourinary: No Dysuria, No Frequency, No Incontinence, No Hematuria, No Retention, No Other Musculoskeletal: No other, No neck pain, No shoulder pain, No arm pain, No back pain, No hand pain, No leg pain, No foot pain Skin: No Rash, No Lesions, No Jaundice, No Bruising, No Other Objective Vitals Vital Signs Date Time Temp Pulse Resp B/P (MAP) Pulse Ox O2 Delivery O2 Flow Rate FiO2 08/04/24 08:26 98.3 70 19 99/64 (76) 100 98.3 08/04/24 08:00 Room Air* 0 99 21 Intake/Output Intake and Output 08/04/24 07:00 Intake Total 370 ml Balance 370 ml Intake Oral 270 ml IV Total 100 ml # Voids 1 General Appearance: Alert, Oriented X3, Cooperative, No acute distress Lungs: Clear to auscultation, Normal air movement Cardiovascular: Regular rate, Normal S1, Normal S2 Abdomen: Normal bowel sounds, Soft, No tenderness Extremities: No edema Medications Current Medications Medications Dose Ordered Sig/Elina Route Start Time Stop Time Status Last Admin Dose Admin Ondansetron HCl 4 mg Q4HP PRN IV 08/03/24 14:00 08/04/24 08:30 4 MG Docusate Sodium 100 mg BIDPRN PRN PO 08/03/24 14:00 Acetaminophen 650 mg Q6HP PRN PO 08/03/24 14:00 Metronidazole 100 ml @ 100 mls/hr Q8HR IV 08/03/24 14:00 08/04/24 05:52 100 MLS/HR Ceftriaxone Sodium 50 ml @ 100 mls/hr DAILY@09 IV 08/04/24 09:00 08/04/24 09:26 100 MLS/HR Trazodone HCl 50 mg HS PRN PO 08/03/24 14:15 Duloxetine HCl 60 mg DAILY PO 08/04/24 10:00 08/04/24 09:26 60 MG Famotidine 40 mg DAILY PO 08/04/24 10:00 08/04/24 09:25 40 MG Gabapentin 800 mg TID PO 08/04/24 06:00 08/04/24 05:45 800 MG Metoclopramide HCl 10 mg Q8HPRN PRN IV 08/03/24 14:15 Sucralfate 1 gm BID@0600,2200 PO 08/03/24 22:00 08/04/24 05:45 1 GM Acetaminophen/ Hydrocodone Bitart 1 tab Q6HPRN PRN PO 08/03/24 21:30 UNV Acetaminophen/ Hydrocodone Bitart 1 tab Q6HPRN PRN PO 08/03/24 22:15 08/04/24 12:03 1 TAB Laboratory Results Laboratory Tests 08/04/24 05:29 Chemistry Test 08/03/24 18:40 08/04/24 05:29 Magnesium Level 1.9 mg/dL (1.6-2.6) Albumin 4.0 g/dL (3.2-4.8) Calcium Level 9.8 mg/dL (8.7-10.4) Total Protein 6.0 g/dL (5.7-8.2) LFT Test 08/04/24 05:29 Alanine Aminotransferase (ALT) 26 U/L (7-40) Alkaline Phosphatase 56 U/L (46-116) Aspartate Amino Transferase (AST) 20 U/L (13-40) Total Bilirubin 0.4 mg/dL (0.2-1.0) Urinalysis Test 08/03/24 08:13 Urine Color Light-yellow (Yellow) Urine Clarity Clear (Clear) Urine pH 5.5 (5.0-9.0) Urine Specific [place] 1.006 (1.001-1.035) Urine Protein Negative (Negative) Urine Ketones 2+ (Negative) H Urine Blood Negative /uL (Negative) Urine Nitrite Negative (Negative) Urine Bilirubin Negative (Negative) Urine Urobilinogen Normal mg/dL (Negative) Urine Leukocyte Esterase Negative /uL (Negative) Urine RBC None seen /hpf (0 - 4) Urine Microscopic WBC < 1 /HPF (0-5) Urine Squamous Epithelial Cells Few /hpf (<5) Urine Bacteria Few /hpf (None Seen) H Urine Mucus Few (None Seen) Urine Glucose Normal mg/dL (Normal) Assessment/Plan Assessment/Plan Intractable nausea and vomiting Abdominal pain Chronic pancreatitis Hypokalemia Leukocytosis Chronic low back pain Chronic narcotic use Plan Advance diet to soft diet Continue IV fluids Pain management as needed Antiemetics p.r.n. Creon tid with meals Pancreatic enzymes t.i.d. with meals Full code Advance directives discussed for 17 minutes Plan discussed with: Patient Date of Service: Aug 04, 2024 Billing Provider: MARKUS NERI MD Common Visit Codes: [id number] INP/OBS CARE(HIGH) Secondary Visit Codes: [id number] CARE PLAN 30 MINUTES MARKUS NERI MD Aug 04, 2024 13:49
[2024-08-04] MEDS: SODIUM CHLORIDE 0.9% 1,000 ML IV SCH (16:35)
[2024-08-05 01:00] VITALS: BP 103/70; PULSE 66; RESP 17; TEMP 97.9; O2SAT 99
[2024-08-05 05:00] VITALS: BP 106/76; PULSE 78; RESP 20; TEMP 97.9; O2SAT 100
[2024-08-05] MEDS: METOCLOPRAMIDE HCL 5MG/ml INJ 2ml VIAL IV PRN (05:13)
[2024-08-05 06:33] LABS: Alanine Aminotransferase 25 U/L (7-40); Albumin 4.1 g/dL (3.2-4.8); Anion Gap 9 (5-15); Aspartate Aminotransferase 21 U/L (13-40); Calcium 9.9 mg/dL (8.7-10.4); Carbon Dioxide 24 mmol/L (20-31); Glucose 96 mg/dL (74-106); Lipase 43 U/L (12-53); Magnesium 1.9 mg/dL (1.6-2.6); Potassium 4.6 mmol/L (3.5-5.1); Sodium 144 mmol/L (136-145); Total Protein 6.1 g/dL (5.7-8.2)
[2024-08-05 06:42] LABS: BUN/Creatinine Ratio 7.9 (10.0-20.0); Bilirubin, Total 0.3 mg/dL (0.2-1.0); Blood Urea Nitrogen < 5 mg/dL (9-23); Chloride 111 mmol/L (98-107)
[2024-08-05 06:58] LABS: Alkaline Phosphatase 57 U/L (46-116)
[2024-08-05 07:26] LABS: Triglycerides 58 mg/dL (< 150)
[2024-08-05 07:27] LABS: Cholesterol 151 mg/dL (< 200); LDL Cholesterol 90 mg/dL (< 100)
[2024-08-05 07:28] LABS: HDL Cholesterol 49 mg/dL (40-59)
[2024-08-05 08:00] VITALS: PULSE 66; RESP 16; O2SAT 100
[2024-08-05 09:00] VITALS: BP 109/72; PULSE 64; RESP 16; TEMP 98; O2SAT 100
--- NOTE | 2024-08-05 12:02 | DVHPN2 ---
Subjective No new complaints She is still having some abdominal pain on and off Her labs look stable Changes from previous H/P or p: Changes Eyes: No Pain, No Vision change, No Conjunctivae inflammation, No Eyelid inflammation, No Other, No Redness ENT: No Ear pain, No Ear discharge, No Nose pain, No Nose discharge, No Nose congestion, No Mouth pain, No Mouth swelling, No Throat pain, No Throat swelling, No Other Cardiovascular: No Chest Pain, No Palpitations, No Orthopnea, No Paroxysmal Noc. Dyspnea, No Edema, No Lt Headedness, No Other Respiratory: No Cough, No Dry, No Shortness of breath, No SOB with excertion, No Wheezing, No Hemoptysis, No Pleuritic Pain, No Sputum, No Other Gastrointestinal: Nausea, Vomiting, Abdominal Pain; No Diarrhea, No Constipation, No Melena, No Hematochezia, No Other Genitourinary: No Dysuria, No Frequency, No Incontinence, No Hematuria, No Retention, No Other Musculoskeletal: No other, No neck pain, No shoulder pain, No arm pain, No back pain, No hand pain, No leg pain, No foot pain Skin: No Rash, No Lesions, No Jaundice, No Bruising, No Other Objective Vitals Vital Signs Date Time Temp Pulse Resp B/P (MAP) Pulse Ox O2 Delivery O2 Flow Rate FiO2 08/05/24 09:00 98.0 64 16 109/72 (84) 100 98.0 08/05/24 08:00 Room Air* 0 99 21 Intake/Output Intake and Output 08/05/24 07:00 Intake Total 2630 ml Output Total 600 ml Balance 2030 ml Intake Oral 1330 ml IV Total 1300 ml Output Urine Total 600 ml # Voids 2 General Appearance: Alert, Oriented X3, Cooperative, No acute distress Lungs: Clear to auscultation, Normal air movement Cardiovascular: Regular rate, Normal S1, Normal S2 Abdomen: Normal bowel sounds, Soft, No tenderness Extremities: No edema Medications Current Medications Medications Dose Ordered Sig/Elina Route Start Time Stop Time Status Last Admin Dose Admin Ondansetron HCl 4 mg Q4HP PRN IV 08/03/24 14:00 08/04/24 08:30 4 MG Docusate Sodium 100 mg BIDPRN PRN PO 08/03/24 14:00 Acetaminophen 650 mg Q6HP PRN PO 08/03/24 14:00 Metronidazole 100 ml @ 100 mls/hr Q8HR IV 08/03/24 14:00 08/05/24 05:25 100 MLS/HR Ceftriaxone Sodium 50 ml @ 100 mls/hr DAILY@09 IV 08/04/24 09:00 08/05/24 08:35 100 MLS/HR Trazodone HCl 50 mg HS PRN PO 08/03/24 14:15 Duloxetine HCl 60 mg DAILY PO 08/04/24 10:00 08/05/24 09:00 60 MG Gabapentin 800 mg TID PO 08/04/24 06:00 08/05/24 05:18 800 MG Metoclopramide HCl 10 mg Q8HPRN PRN IV 08/03/24 14:15 08/05/24 05:13 10 MG Sucralfate 1 gm BID@0600,2200 PO 08/03/24 22:00 08/05/24 05:19 1 GM Acetaminophen/ Hydrocodone Bitart 1 tab Q6HPRN PRN PO 08/03/24 21:30 UNV Acetaminophen/ Hydrocodone Bitart 1 tab Q6HPRN PRN PO 08/03/24 22:15 08/05/24 11:50 1 TAB Sodium Chloride 1,000 ml @ 75 mls/hr [id number] IV 08/04/24 13:45 08/05/24 05:20 75 MLS/HR Patient Own Medication 2 TIDWM PO 08/04/24 14:00 Laboratory Results Laboratory Tests 08/04/24 05:29 08/05/24 05:32 Chemistry Test 08/05/24 05:32 Albumin 4.1 g/dL (3.2-4.8) Calcium Level 9.9 mg/dL (8.7-10.4) Magnesium Level 1.9 mg/dL (1.6-2.6) Total Protein 6.1 g/dL (5.7-8.2) Lipid panel Test 08/05/24 05:32 Cholesterol Level 151 mg/dL (< 200) HDL Cholesterol 49 mg/dL (40-59) Lipase 43 U/L (12-53) Triglycerides Level 58 mg/dL (< 150) LFT Test 08/05/24 05:32 Alanine Aminotransferase (ALT) 25 U/L (7-40) Alkaline Phosphatase 57 U/L (46-116) Aspartate Amino Transferase (AST) 21 U/L (13-40) Total Bilirubin 0.3 mg/dL (0.2-1.0) Urinalysis Test 08/03/24 08:13 Urine Color Light-yellow (Yellow) Urine Clarity Clear (Clear) Urine pH 5.5 (5.0-9.0) Urine Specific [place] 1.006 (1.001-1.035) Urine Protein Negative (Negative) Urine Ketones 2+ (Negative) H Urine Blood Negative /uL (Negative) Urine Nitrite Negative (Negative) Urine Bilirubin Negative (Negative) Urine Urobilinogen Normal mg/dL (Negative) Urine Leukocyte Esterase Negative /uL (Negative) Urine RBC None seen /hpf (0 - 4) Urine Microscopic WBC < 1 /HPF (0-5) Urine Squamous Epithelial Cells Few /hpf (<5) Urine Bacteria Few /hpf (None Seen) H Urine Mucus Few (None Seen) Urine Glucose Normal mg/dL (Normal) Assessment/Plan Assessment/Plan Intractable nausea and vomiting Abdominal pain Chronic pancreatitis Hypokalemia Leukocytosis Chronic low back pain Chronic narcotic use Plan Advance diet to soft diet Continue IV fluids Pain management as needed Antiemetics p.r.n. Creon tid with meals Pancreatic enzymes t.i.d. with meals Full code Advance directives discussed for 17 minutes 08/05/2024: Continue soft diet Continue IV fluids Continue Rocephin and Flagyl IV Protonix and Carafate Monitor closely GI is following Plan discussed with: Patient My Orders Orders - MARKUS NERI MD Procedure Category Date Status Time Sodium Chloride 0.9% PHA 08/04/24 In Process 13:45 Mechanical Soft Diet DIET 08/04/24 Transmitted Dinner Patients Own PHA 08/04/24 In Process Medication 14:00 Date of Service: Aug 05, 2024 Billing Provider: MARKUS NERI MD Common Visit Codes: NOT BILLABLE MARKUS NERI MD Aug 05, 2024 12:02
--- NOTE | 2024-08-05 12:34 | DVHDS2 ---
Discharge Summary Date of Admission Aug 03, 2024 at 13:59 Date of Discharge: Aug 05, 2024 Labs/Diagnostic Data: Laboratory Results Test 08/05/24 05:32 08/05/24 05:00 08/04/24 05:29 08/03/24 09:45 Sodium Level 144 mmol/L (136-145) Potassium Level 4.6 mmol/L (3.5-5.1) Chloride Level 111 mmol/L (98-107) Carbon Dioxide Level 24 mmol/L (20-31) Anion Gap 9 (5-15) Blood Urea Nitrogen < 5 mg/dL (9-23) Creatinine 0.63 mg/dL (0.550-1.02) Glomerular Filtration Rate Calc 114 mL/min (>90) BUN/Creatinine Ratio 7.9 (10.0-20.0) Serum Glucose 96 mg/dL (74-106) Calcium Level 9.9 mg/dL (8.7-10.4) Magnesium Level 1.9 mg/dL (1.6-2.6) Total Bilirubin 0.3 mg/dL (0.2-1.0) Aspartate Amino Transferase (AST) 21 U/L (13-40) Alanine Aminotransferase (ALT) 25 U/L (7-40) Alkaline Phosphatase 57 U/L (46-116) Total Protein 6.1 g/dL (5.7-8.2) Albumin 4.1 g/dL (3.2-4.8) Triglycerides Level 58 mg/dL (< 150) Cholesterol Level 151 mg/dL (< 200) LDL Cholesterol 90 mg/dL (< 100) HDL Cholesterol 49 mg/dL (40-59) Lipase 43 U/L (12-53) Stool for White Cells None seen White Blood Count 5.8 10^3/uL (4.4-10.8) Red Blood Count 4.47 10^6/uL (4.0-5.20) Hemoglobin 13.2 g/dL (12.2-16.2) Hematocrit 40.8 % (36.0-46.0) Mean Corpuscular Volume 91.2 fL (80.0-100.0) Mean Corpuscular Hemoglobin 29.6 pg (28.0-32.0) Mean Corpuscular Hemoglobin Concent 32.4 g/dL (32.0-36.0) Red Cell Distribution Width 16.9 % (11.8-14.3) Platelet Count 276 10^3/uL (140-450) Mean Platelet Volume 7.3 fL (6.9-10.8) Neutrophils (%) (Auto) 58.3 % (37.0-80.0) Lymphocytes (%) (Auto) 29.9 % (10.0-50.0) Monocytes (%) (Auto) 9.4 % (0.0-12.0) Eosinophils (%) (Auto) 1.8 % (0.0-7.0) Basophils (%) (Auto) 0.6 % (0.0-2.0) Neutrophils # (Auto) 3.4 10 ^3/uL (1.6-8.6) Lymphocytes # (Auto) 1.7 10 ^3/uL (0.4-5.4) Monocytes # (Auto) 0.5 10 ^3/uL (0-1.3) Eosinophils # (Auto) 0.1 10 ^3/uL (0-0.8) Basophils # (Auto) 0 10 ^3/uL (0-0.2) Nucleated Red Blood Cells 0.2 % Platelet Estimate Adequate Amylase Level 100 U/L (30-118) Test 08/03/24 08:13 Urine Color Light-yellow (Yellow) Urine Clarity Clear (Clear) Urine pH 5.5 (5.0-9.0) Urine Specific [place] 1.006 (1.001-1.035) Urine Protein Negative (Negative) Urine Ketones 2+ (Negative) Urine Blood Negative /uL (Negative) Urine Nitrite Negative (Negative) Urine Bilirubin Negative (Negative) Urine Urobilinogen Normal mg/dL (Negative) Urine Leukocyte Esterase Negative /uL (Negative) Urine RBC None seen /hpf (0 - 4) Urine Microscopic WBC < 1 /HPF (0-5) Urine Squamous Epithelial Cells Few /hpf (<5) Urine Bacteria Few /hpf (None Seen) Urine Mucus Few (None Seen) Urine Glucose Normal mg/dL (Normal) Other Laboratory Tests 08/05/24 05:32 08/04/24 05:29 Brief Hx & Hospital Course: Final diagnoses: Intractable nausea and vomiting Abdominal pain Chronic pancreatitis Hypokalemia Leukocytosis Chronic low back pain Chronic narcotic use 43-year-old female who was admitted for abdominal pain and nausea and vomiting She was given IV fluids and electrolyte replacement GI service saw the patient recommended conservative management The patient is seen in the GI service as an outpatient and she is going to have endoscopy soon and therefore they recommended for her to go as an outpatient She is asymptomatic now and therefore she can be discharged home to follow up with GI as scheduled Condition at Discharge: Stable Final Diagnosis/Problems List Intractable nausea and vomiting Abdominal pain Chronic pancreatitis Hypokalemia Leukocytosis Chronic low back pain Chronic narcotic use Discharge Disposition: Home SNF Discharge Will this Physician continue t: No Discharge Instruct/Medications Diet: Regular Activity: No Restrictions, As Tolerated Follow Up/Referral: PCP as soon as possible Dr. Pepito Chavez as scheduled Medications: Same home medications Discharge Statement: "Patient was advised to return to the ER or call 911 if any headaches, dizziness, shortness of breath, chest pain, abdominal pain, bleeding, fevers, or worsening of medical condition. Patient was counseled about treatment plan, medications, possible side effects, patientverbalized understanding. All questions were answered to the best of my ability. This discharge took greater then 30 minutes in planning, reviewing documentation, counseling the patient, and discussing with other team members." ASSESSMENT ASSESSMENT Assessment Intractable nausea and vomiting Abdominal pain Chronic pancreatitis Hypokalemia Leukocytosis Chronic low back pain Chronic narcotic use Date of Service: Aug 05, 2024 Billing Provider: MARKUS NERI MD Common Visit Codes: [id number] DISCH DAY >30min MARKUS NERI MD Aug 05, 2024 12:34
[2024-08-05 13:00] VITALS: BP 116/72; PULSE 72; RESP 17; TEMP 98.6; O2SAT 99
--- NOTE | 2024-08-05 14:04 | DVHPN2 ---
Progress Note Date Seen: Aug 05, 2024 Resident Creating Document: EDOUARD ECHEVERRIA RESIDENT Medical Necessity Reason Pt with a Central, PICC or Fol: No Subjective Review of Systems No new complaints. Objective vital signs Vital Sign Date Time Temp Pulse Resp B/P (MAP) Pulse Ox O2 Delivery O2 Flow Rate FiO2 08/05/24 13:00 98.6 72 17 116/72 (87) 99 98.6 08/05/24 08:00 Room Air* 0 99 21 Total Intake and Output 08/04/24 08/04/24 08/05/24 15:00 23:00 07:00 Intake Total 150 ml 580 ml 1900 ml Output Total 600 ml Balance 150 ml 580 ml 1300 ml medications Current Medications Medications Dose Ordered Sig/Elina Route Start Time Stop Time Status Last Admin Dose Admin Ondansetron HCl 4 mg Q4HP PRN IV 08/03/24 14:00 08/04/24 08:30 4 MG Docusate Sodium 100 mg BIDPRN PRN PO 08/03/24 14:00 Acetaminophen 650 mg Q6HP PRN PO 08/03/24 14:00 Metronidazole 100 ml @ 100 mls/hr Q8HR IV 08/03/24 14:00 08/05/24 05:25 100 MLS/HR Ceftriaxone Sodium 50 ml @ 100 mls/hr DAILY@09 IV 08/04/24 09:00 08/05/24 08:35 100 MLS/HR Trazodone HCl 50 mg HS PRN PO 08/03/24 14:15 Duloxetine HCl 60 mg DAILY PO 08/04/24 10:00 08/05/24 09:00 60 MG Gabapentin 800 mg TID PO 08/04/24 06:00 08/05/24 05:18 800 MG Metoclopramide HCl 10 mg Q8HPRN PRN IV 08/03/24 14:15 08/05/24 05:13 10 MG Sucralfate 1 gm BID@0600,2200 PO 08/03/24 22:00 08/05/24 05:19 1 GM Acetaminophen/ Hydrocodone Bitart 1 tab Q6HPRN PRN PO 08/03/24 21:30 UNV Acetaminophen/ Hydrocodone Bitart 1 tab Q6HPRN PRN PO 08/03/24 22:15 08/05/24 11:50 1 TAB Sodium Chloride 1,000 ml @ 75 mls/hr [id number] IV 08/04/24 13:45 08/05/24 05:20 75 MLS/HR Patient Own Medication 2 TIDWM PO 08/04/24 14:00 Examination General Appearance: Cooperative. Well developed. Well nourished. NAD Head Exam: Normal inspection Neck Exam: Normal inspection. Non-tender. Normal alignment Pulmonary/Respiratory: Chest non-tender. Clear bilateral breath sounds, no crackles, no wheezing. Cardiovascular/Chest: Regular rate and rhythm. No murmurs. No JVD. Peripheral Pulses: 2+ Radial (R). 2+ Radial (L). 2+ Pedal (R). 2+ Pedal (L) Abdominal Exam: Normal bowel sounds. Soft. normal abdomen, no visible veins, Nontender. No hepatospenomegaly. No masses Ankle Exam: Negative ankle edema Lower extremities: Negative lower extremity edema Neuro/Mental Status: A&O x4. Coherent. Thoughts/Psych: Normal thought pattern. Appropriate mood and affect. Good judgement and insight Skin Exam: Normal inspection. Normal color. Warm. Dry laboratory and microbiology Laboratory Tests 08/05/24 05:32 08/04/24 05:29 Test 08/05/24 05:32 Range/Units Serum Glucose 96 74-106 mg/dL Problem List/Assessment/Plan Problem List/Assessment/Plan Chronic pancreatic insufficiency Abdominal pain likely related to nausea and vomiting with underlying chronic pancreatic insufficiency, acute gastroenteritis ? Acute gastroenteritis History of diarrhea Plan/recommendation Dr Chavez -outpatient follow up for endoscopy and colonoscopy in GI clinic. -continue Protonix 40 mg p.o. daily, conservative management with antiemetics ondansetron as needed. -continue Creon 25868 units p.o. before each meal. -patient has been discharged and advised to follow up in GI clinic as scheduled appointment. Plan discussed with: Patient, Other (RN) Dietary Evaluation Review Comments: 1. Agree with advancement to GI Soft diet as tolerated 2. CREON TID w/ meals 3. Monitor/treat GI symtpoms 4. Continue to document oral intakes 5. If intractable N/V persists without resolution, consider TPN initiation Expected Outcomes/Goals: Improved GI symptoms, diet tolerance, weight maintenance, adequate nutrition EDOUARD ECHEVERRIA RESIDENT Aug 05, 2024 14:04
[2024-08-05 14:36] VITALS: BP 116/72; PULSE 72; RESP 16; TEMP 37; O2SAT 99
== END 2024-08-05 15:05 | disposition home or self-care (01) | DRG 248 ==
LOC: ER 07:59 → OVERFLOW 13:59 → EAST 16:25
PROVIDERS: ADMIT Internal Medicine Geriatric Medicine; ATTEND Internal Medicine Geriatric Medicine
DX: A04.9 Bacterial intestinal infection, unspecified (principal); D72.829 Elevated white blood cell count, unspecified; R11.2 Nausea with vomiting, unspecified; K86.1 Other chronic pancreatitis; E87.6 Hypokalemia; F10.11 Alcohol abuse, in remission; F12.90 Cannabis use, unspecified, uncomplicated; F32.A Depression, unspecified; G40.909 Epilepsy, unspecified, not intractable, without status epilepticus; M54.50 Low back pain, unspecified; G89.29 Other chronic pain; Z79.899 Other long term (current) drug therapy; Z79.891 Long term (current) use of opiate analgesic; Z90.49 Acquired absence of other specified parts of digestive tract; Z87.891 Personal history of nicotine dependence; Z83.2 Family history of diseases of the blood and blood-forming organs and certain disorders involving the immune mechanism; Z79.1 Long term (current) use of non-steroidal anti-inflammatories (NSAID); Z79.2 Long term (current) use of antibiotics
CPT/HCPCS: 36415; 76700; 80048; 80053; 80061; 81001; 82150; 82705; 83690; 83735; 84132; 85025; 85048; 87045; 87427; G0378; J2405; J3490